=== PATIENT | female | born 1970 | race Caucasian/White ===

== ENCOUNTER 2019-10-05 16:27 | Emergency (ER) | payer OTHER ==
[~2019-10-05] VITALS: Ht 167.6 cm; Wt 129.3 kg
[~2019-10-05 16:27] MED LIST: CYCLOBENZAPRINE5 MG PO; LISINOPRIL10 MG PO; NAPROSYN500 MG PO; NORCO 5-325 TA1 EACH PO
[2019-10-05] MEDS ORDERED: BUPROPION XL300 MG PO (16:49)
[2019-10-05] MEDS ORDERED: LIPITOR10 MG PO (16:49)
[2019-10-05] MEDS ORDERED: PERCOCET 7.5-31 EAC1 PO (19:57)
[2019-10-05] MEDS ORDERED: LIDODERM1 EACH TRANSDERM (19:58)
[2019-10-05 20:46] VITALS: BP 101/74
== END 2019-10-05 20:48 | disposition home or self-care (01) ==
LOC: M.ERS 16:27
DX: S22.42XA Multiple fractures of ribs, left side, initial encounter for closed fracture (principal); M54.6 Pain in thoracic spine; I10 Essential (primary) hypertension; Z90.49 Acquired absence of other specified parts of digestive tract; W01.0XXA Fall on same level from slipping, tripping and stumbling without subsequent striking against object, initial encounter; Y93.89 Activity, other specified; Y92.89 Other specified places as the place of occurrence of the external cause; Y99.8 Other external cause status

== ENCOUNTER → 2020-09-23 | Outpatient (CLI) | payer OTHER ==
[~2020-09-23] MED LIST changes: +BUPROPION XL300 MG PO; +LIDODERM1 EACH TRANSDERM; +LIPITOR10 MG PO; +PERCOCET 7.5-31 EAC1 PO
== END ==
LOC: M.RAD 08:27
PROVIDERS: ATTEND Nurse Practitioner Family
DX: M17.12 Unilateral primary osteoarthritis, left knee (principal); G89.29 Other chronic pain